=== PATIENT | male | born 1940 | race Caucasian/White ===

== ENCOUNTER → 2019-05-09 | Emergency (ER) | payer OTHER ==
[~2019-05-09] VITALS: Ht 182.9 cm; Wt 93.0 kg
[~2019-05-09] MED LIST: CLONAZEPAM1 MG PO; DOCUSATE SODIU100 MG PO; MOTION-TIME25 MG PO; PERCOCET 10-3251 TAB; PERCOCET 5/3251 TAB PO; TIROSINT88 MCG
== END | disposition home or self-care (01) ==
LOC: ER 13:05
DX: R42 Dizziness and giddiness (principal)

== ENCOUNTER 2021-02-02 12:41 | Emergency (ER) | payer OTHER ==
[~2021-02-02] VITALS: Ht 175.3 cm; Wt 90.7 kg
== END 2021-02-02 18:50 | disposition home or self-care (01) ==
LOC: ER 12:41
DX: K40.20 Bilateral inguinal hernia, without obstruction or gangrene, not specified as recurrent (principal); R10.31 Right lower quadrant pain; Z03.818 Encounter for observation for suspected exposure to other biological agents ruled out